=== PATIENT | male | born 1955 ===

== ENCOUNTER 2017-11-20 05:50 | Day surgery (SDC) | payer OTHER ==
[2017-11-14 11:52] VITALS: BMI 28.5
[2017-11-20] MEDS ORDERED: EPINEPHrine 1 mg/ml (1:1000) Inj ONE (07:06)
[2017-11-20] MEDS ORDERED: Absorbable Gelatin Sponge Size 12-7 ONE (07:06)
[2017-11-20] MEDS ORDERED: Bupivacaine HCl 0.5% PF (30 ml) Inj ONE (07:06)
[2017-11-20] MEDS ORDERED: Thrombin Topical 5,000 Int Units Spray Kit ONE (07:07)
[2017-11-20] MEDS ORDERED: Bacitracin Ointment 30 GM TUBE ONE (07:07)
[2017-11-20] MEDS ORDERED: Lidocaine 1% w Epi 1:100,000 Inj ONE (07:07)
[2017-11-20] MEDS ORDERED: Succinylcholine 200 mg/10 ml Inj IV ONE (07:09)
[2017-11-20] MEDS ORDERED: Lidocaine 1% 5ml Abboject IV ONE (07:09)
[2017-11-20] MEDS ORDERED: Propofol 10 mg/ml Inj (20 ML) ONE (07:09)
[2017-11-20] MEDS ORDERED: Lidocaine 2% Jelly (5 ml) TOP ONE (07:10)
[2017-11-20] MEDS ORDERED: Ropivacaine 0.5% 30ML IV ONE (07:19)
[2017-11-20] MEDS ORDERED: Midazolam 2 MG/2 ML VIAL ONE (07:23)
--- NOTE | 2017-11-20 07:49 | CP.SDSHP ---
Same Day Surgery H & P - History Proposed Procedure: R shoulder arthroscopic rotator cuff, labral and proximal biceps repair and all indicated procedures Pre-Op Diagnosis: R shoulder rotator cuff tear, labral tear, proximal biceps tendon tear - Previous Medical/Surgical History Pulmonary: Asthma Pain: 6.Severe Pain Comments: Gastric ulcer Previous Surgical History: Left shoulder arthroscopy - Allergies Allergies: Allergies Penicillins Allergy (Verified 11/20/17 06:25) RASH - Current Medications Current Medications: as per Med rec - Physical Exam General Appearance: NAD Vital Signs: Vital Signs 11/20/17 11/20/17 06:49 06:54 Temperature 97.5 F L Pulse Rate 54 L 54 L Respiratory 18 Rate Blood Pressure 146/86 O2 Sat by Pulse 99 Oximetry Mental Status: Alert & Oriented x3 Neuro: WNL Heart: WNL Lungs: WNL GI: WNL - {Optional Preform as Required} Abdomen: WNL Integument: WNL Ortho: Other (RUE: painful ROM, sensation and motor intact MN/RN/UN, radial pulse intact) ENT: WNL - Impression Impression: Patient is a 62 y/o male with persistent R shoulder pain and dysfuntion over the last 14 months. The patient has failed conservative management and presents today for elective R shoulder arthroscopy. Recent MRI resulted with complete tears of the supraspinatus, subscapularis and biceps tendons. Risks/benefits/alternatives were explained to the patient who expresses understanding and agrees to proceed with procedure. Pt. Evaluated Today:Candidate for Anesthesia & Procedure: Yes - Date & Time Date: 11/20/17 Time: 07:30 Short Stay Discharge - Short Stay Discharge Admitting Diagnosis/Reason for Visit: M25.511/M25.611/S43.431A/S46.119A Disposition: HOME/ ROUTINE Medications: oxyCODONE/Acetaminophen [Percocet 5/325 mg Tab] 1 - 2 ea PO Q4 PRN #30 tab PRN Reason: Pain, Severe (8-10) Referrals: Parag Walton III, MD [Primary Care Provider] -
[2017-11-20] MEDS ORDERED: ePHEDrine 50 mg/ml Inj ONE (08:29)
[2017-11-20] MEDS: EPINEPHrine 1 mg/ml (1:1000) Inj ONE ×2 (09:00→09:05)
[2017-11-20] MEDS ORDERED: Lactated Ringer's 1,000 ML IV ONE ×2 (09:01→10:30)
--- NOTE | 2017-11-20 11:08 | PCM.ANESB1 ---
Interscalene Block - Brachial Plexus Date of Procedure: 11/20/17 Anesthesiologist: Altaf Pre-Procedure Diagnosis: right shoulder internal derangement Post-Procedure Diagnosis: same Procedure Performed: Interscalene Block of Brachial Plexus Right - Procedure Interscalene Block of Brachial Plexus: This procedure was explained to the patient that it is for post-operative pain management. Consent was obtained after a thorough discussion with the patient regarding the benefits and possible complications of local anesthetic block of the Brachial Plexus at the Interscalene area. The patient was brought to the Operating Room and standard monitors were applied. Time out was held with the circulating nurse to confirm the correct surgery and appropriate block. After applying Oxygen by nasal cannula and administering IV Sedation, the patient's head was gently rotated away from the [facility] operative shoulder and the anterior scalene groove was carefully palpated. The ultrasound transducer was then applied to the skin in the transverse plane and the brachial plexus was visualized lateral to the carotid artery and in between the anterior and middle scalene muscles. After identification,the anterior lateral portion of the neck was prepped with Betadine solution three times and Lidocaine 1% was injected subcutaneously for topical analgesia. At this point, a # 22 gauge Stimuplex 2 inches insulated needle was inserted into the interscalene groove and directed in a caudal and midline direction. The needle was inserted lateral to the ultrasound transducer in-plane towards the brachial plexus in a [id number] direction. Needle advancement was performed carefully under direct ultrasound visualization. Nerve stimulator was used and twitched of the affected extremity including the hand brachialis muscles, biceps and the deltoid was obtained at a current of _0.4____MA. After repeated negative aspiration,__30___cc of__0.5%___,___ropivicaine were injected and this was followed with cc of % . Under ultrasound guidance the local anesthetics were observed surrounding the roots of the brachial plexus. The needle was removed intact and sterile dressing was applied. The patient had stable vital signs, was conscious and in no apparent distress. The patient tolerated the interscalene block of the bracheal plexus well with stable vital signs and was prepared for subsequent surgery.
[2017-11-20] MEDS ORDERED: Oxycodone/Acetaminophen 5/325 mg Tab PO PRN (11:11)
[2017-11-20] MEDS ORDERED: Lactated Ringer's 1,000 ML IV SCH (11:15)
[2017-11-20] MEDS: HYDROmorphone 0.5 mg/0.5 ml ISec IVP PRN ×3 (11:47→12:09)
[2017-11-20 14:08] VITALS: RESP 18
--- NOTE | 2017-11-20 16:03 | PCM.SURG1 ---
Surgeon's Initial Post Op Note - Surgeon's Notes Surgeon: Anton Blow Down Helper: assist Alvaro Lallo/ Type of Anesthesia: General Endo Anesthesia Administered By: Dr Solitario Pre-Operative Diagnosis: Post traumatic derangemnt R shoulder Operative Findings: grade 3 tear rotator cuff. labral tear- SLAP lesion. A/C joint arthropathy. subacromial impingemnt. bursa/adhesions subsacromial spece. rupture bicpes tendon with intrarticular remnant. biceps tendon rupture Post-Operative Diagnosis: as above Operation Performed: arthroscopic rotator cuff repair. arthroscopic labral repair. arthroscopic partial distal claviculectomy. arthroscopic repair proixmal biceps tendon remnant. arthroscopic partail bursectomy. arthroscoipic acromioplasty Specimen/Specimens Removed: synvioum/cartilage/bone Estimated Blood Loss: EBL {In ML}: 25 Blood Products Given: N/A Drains Used: No Drains Post-Op Condition: Good Date of Surgery/Procedure: 11/20/17 Time of Surgery/Procedure: 08:55 (time in room/anaetsheisa indcution time 7:55)
[2017-11-20] MEDS ORDERED: Oxycodone/Acetaminophen 5/325 mg Tab PO ONE (16:10)
[2017-11-20 16:24] VITALS: BP 142/91; PULSE 56; TEMP 97.4; O2SAT 95
--- NOTE | 2017-11-21 04:42 | OP ---
Copied To: Parag Walton MD Attending MD: Parag Walton MD PROCEDURE DATE: 11/20/2017 LOCATION: . SURGEON Parag Walton MD 8TH GRADE TEACHER: Julia Mak, certified registered nursing media center assistant. TYPE OF ANESTHESIA: General endotracheal. ANESTHESIA ADMINISTERED BY: Baljinder Solitario MD PREOPERATIVE DIAGNOSIS: Posttraumatic derangement of right shoulder. OPERATIVE FINDINGS: 1. Grade III rotator cuff tear of the right shoulder. 2. Labral tear/SLAP lesion extending anterior to posterior to the root of the biceps tendon which had been ruptured. 3. AC joint arthropathy. 4. Subacromial impingement. 5. Bursa, exuberant adhesions and bursitis in the subacromial space. 6. Rupture of the biceps tendon with an intra-articular remnant, biceps tendon rupture with low lying chronic biceps musculature. POSTOPERATIVE DIAGNOSES: Posttraumatic derangement of right shoulder. OPERATIVE PROCEDURES: 1. Arthroscopic rotator cuff repair. 2. Arthroscopic intra-articular biceps tenodesis of the biceps tendon remnant. 3. Arthroscopic repair of labral/SLAP lesion, anterior labrum repair. 4. Extensive debridement of glenohumeral joint and chondroplasty of the glenoid. 5. Arthroscopic partial distal claviculectomy. 6. Arthroscopic partial acromioplasty. 7. Application of Antonio Kamara compression dressing and shoulder immobilizer. SPECIMENS REMOVED: Bursa, synovium, cartilage, and bone. BLOOD LOSS: Approximately 25 mL. BLOOD PRODUCTS: No blood products given. DRAINS: No drains. POSTOPERATIVE CONDITION: Good. DATE OF SURGERY: 11/20/2017 TIME OF SURGERY: 08:55 time of the incision. Time in the room, anesthesia induction time 07:55. OPERATIVE INDICATION: Sam Bess is a 62-year-old gentleman who presents with severe pain and restricted range of motion of the right shoulder. It should be noted that the patient has had an injury to the right shoulder which was chronic. 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 The patient has pain, restricted range of motion of the right shoulder. The patient was refractory to conservative approach consisting of intra-articular injection, activity modification, and physical therapy. Pros, cons, risks and benefits of surgical arthroscopy and possible reconstruction of the long head of the biceps tendon were discussed at length with the patient. It should be noted that it was discussed with the patient that an open biceps tenodesis would be attempted if all situations at the time of surgery were amenable. The fact that the low-lying biceps muscle was approximately 14-16 months made it very dubious that that could be mobilized. This was discussed at length with Sam. Pros, cons, risks and benefits of arthroscopic rotator cuff repair were discussed. The possibility of mechanical failure, infection, thromboembolic disease, stiffness, nerve injury, secondary or tertiary surgery was discussed. The patient could no longer withstand the discomfort, wished the surgery to be accomplished. It was again explained that a secondary setting may be necessary to repair the low-lying biceps muscle. If possible, an attempted open repair and biceps tenodesis will be accomplished at that setting. Unfortunately, as the operation progressed, the right shoulder became swollen and precluded a secondary procedure distally to try to retrieve the biceps tendon distal. The intra-articular remnant had been identified and was actually repaired, so as to it would not interfere with the mechanics of the joint. Therefore, after having obtained informed consent, after having identified side, site and procedure and a critical pause/time-out, after the satisfactory induction of general endotracheal anesthesia by Dr. Solitario, the patient identified as Sam Bess in the modified coburn chair position with all bony prominences well padded with the neck centralized, the right upper extremity was prepped and free draped in the usual fashion for upper extremity surgery. The shoulder massey was employed. At this point in time, after sterilely prepping and draping, after having identified side, site and procedure and a critical pause/time-out after the satisfactory induction of the anesthetic, the patient identified as Sam Bess in the modified coburn chair position, the right upper extremity was prepped and free draped in the usual fashion for arthroscopic upper extremity surgery. The topographic anatomy of the shoulder was marked, the spine of the scapula, lateral aspect of the acromion, coracoid process. This having been accomplished, the joint was insufflated with 10 mL of 1% lidocaine without epinephrine from a posterior approach. The posterior approach was accomplished, thumbs breadth inferior to the lateral aspect of the acromion, one thumbs breadth distal. The joint was insufflated with 10 mL of 1% lidocaine without epinephrine. The coracoid process identified. Triangulation was accomplished using #18-gauge spinal needle followed by #11-blade followed by spreading, followed by introduction of blunt trocar. With the arthroscope posteriorly, the Wissinger amari was introduced anteriorly and the cannula was placed anteriorly. The cannula was placed to outflow. On introduction of the arthroscope, there was found to be an exuberant synovitis, and there was also found to be biceps and labral tear extending anterior to posterior to the root of the biceps tendon as well as marked chondral damage in the joint. The remnant of the biceps tendon, which ruptured is identified and needs to be tenodesed so as to avoid further impingement on the glenohumeral joint. At this point in time, the interval between the labral tear and the glenoid was roughened and developed using the of periosteal elevator. The glenohumeral joint was thoroughly irrigated and debrided using the arthroscopic shaver and the arthroscopic wand. There was found to be evidence of chondral damage in the glenoid vault, and debridement of the glenoid and chondroplasty was accomplished. Extensive debridement of glenohumeral joint having been accomplished, the nitinol wire was introduced anteriorly and was removed anteriorly. With the arthroscope posteriorly, the nitinol wire was used to capture the biceps tendon remnant superiorly. Please refer to the video photographs. Both limbs of the captured suture were brought out anteriorly. Drilling was accomplished at approximately 11:30 position on the glenoid face. Again, this was accomplished after extensive debridement of glenohumeral joint and chondroplasty of the glenoid surface. Drilling was accomplished and the PushLock anchor was introduced and tensioning having been accomplished, the fixation of the biceps was thus accomplished. An intra-articular tenodesis of the biceps tendon was thus accomplished, specifically an intra-articular tenodesis of the biceps tendon remnant was accomplished. At this point in time, the labral tear was identified. Using the lasso, the nitinol wire was used to capture the anterior aspect of the glenoid labrum and was brought out anteriorly. The FiberTape was placed anteriorly. Both limbs of the tape were retrieved. Drilling was accomplished at the 2 o'clock position and using the PushLock anchor, the labral tear was repaired at this point in time. The sutures were clipped. Please refer to the video photographs. The inner free edge of the biceps, tenodesis and the labral repair were smoothed using the arthroscopic wand. This having been accomplished with the arthroscope placed in dependency, a lateral portal was accomplished in the so-called [place] manner using #18-gauge spinal needle followed by #11 blade, followed by spreading. With the arthroscope posteriorly, there was found to be severe synovitis, bursitis and adhesions in the subacromial space. This speaks for the length of time that the shoulder has been injured. With the arthroscope posteriorly, an extensive bursectomy and lysis of adhesions in the subacromial space was accomplished using the arthroscopic shaver. Using the 5.2-mm MyOtherDrive suction punch, the inflamed and thickened bursa was resected. This was a very tedious process. This having been accomplished, the scapula was carefully debrided. The debridement of the subacromial space was accomplished. The bleeding points were controlled using the arthroscopic wand and the arthroscopic shaver. The undersurface of the acromion was cleared as is the acromioclavicular joint. With the arthroscope now posteriorly, the capsule of the acromioclavicular joint was debrided. There was found to be evidence of acromioclavicular joint arthritis. With the arthroscope posteriorly, the cuff grasper was placed anteriorly, and the cuff was mobilized. The cuff was mobilized using a combination of the AO periosteum elevator, and the cuff was mobilized. The cuff was mobilized to the point of the critical zone of [place]. This having been accomplished after mobilization of the cup using the Scorpion, a medial and anterior suture was deployed using the FiberTape and a more posterior and lateral suture was deployed again using the Scorpion. A superior portal was used for placement of the corkscrew anchors just lateral to the clavicle using #18-gauge spinal needle followed by #11 blade followed by spreading. With the arthroscope posteriorly at this point, Passports were introduced superiorly and anteriorly. With the arthroscope posteriorly, the sutures were shuttled from the anterior portal to the superior portal. The arm now was placed in abduction and internal rotation. The first anchor was accomplished anteriorly and medially, and this anchor was impacted. The swivel lock was placed with tensioning to accomplish coverage and was found to be excellent. At this point in time, the more posterior anchor was loaded and with the arm in abduction and internal rotation in the area of the critical zone of [place], this was impacted. The swivel lock was introduced. The rotator cuff was repaired with excellent coverage. At this point in time, the initial suture was brought out superiorly. It was used to grab the posterior dog ear leaflet. It was brought out with the arm in abduction and internal rotation. The third PushLock anchor was loaded. It was impacted. The SwiveLock anchor was introduced. This having been accomplished, the sutures were clipped medially and laterally as well as the additional suture as well. The coverage was found to be excellent at this point in time with the arthroscope posteriorly with the bur being laterally in the so-called [place] portal, a partial acromioplasty was accomplished. With the arthroscope now posteriorly, a partial distal claviculectomy was accomplished from a lateral portal and from the anterior portal. The partial distal claviculectomy include the articular cartilage at approximately the distal 1 cm of the clavicle. Partial distal claviculectomy having been accomplished, partial acromioplasty having been accomplished, further debridement of the subacromial space, partial bursectomy was accomplished as well. The wound was thoroughly irrigated. It should be noted that although it was our intention to explore the low riding biceps muscle and perhaps retrieve the remnants of the tendon and bring it proximally. This was impossible because of the extensive nature of the shoulder operation arthroscopically with extrusion of fluid down past the deltoid. It would have been impossible to successfully accomplish any biceps tenodesis distally subpectorally as the subpectoral region was insufflated with too much fluid. It was explained to the patient postoperatively and his sister who is a healthcare professional that it would not have been in the patient's best interest to do this and it would have been a poor judgment and certainly we would attempt this at a secondary setting if the patient requires. This was discussed at length with the patient after he had been transferred from recovery to same-day surgery, so he was fully aware and both he and his sister were apprised. Antonio Kamara compression dressing and shoulder abduction splint have been applied. Parag Walton MD [facility] # [id number]
== END 2017-11-20 17:00 | disposition home or self-care (01) ==
LOC: H.OPSURG 05:50
PROVIDERS: ATTEND Orthopaedic Surgery
DX: M75.101 Unspecified rotator cuff tear or rupture of right shoulder, not specified as traumatic (principal); J45.909 Unspecified asthma, uncomplicated; M75.41 Impingement syndrome of right shoulder; M75.51 Bursitis of right shoulder